=== PATIENT | female | born 1980 | race Caucasian/White ===

== ENCOUNTER 2024-04-26 17:39 | Emergency (ER) | payer MEDICAID, SELFPAY ==
[2024-04-26 17:52] VITALS: BP 129/94; PULSE 80; TEMP 36.7; O2SAT 98; BMI 32.9
--- NOTE | 2024-04-26 17:54 | XR_ITS ---
The [address] [address] Patient Name: ABILIO HOUSE MRN: [id number] date: 1980 Sex: F Assigned Patient Location: ER Current Patient Location: Accession/Order Number: [id number] Exam Date: 04/26/2024 18:00 Report Date: 04/26/2024 18:51 At the request of: AMRIE TUCKER Procedure: XR foot LT min 3V EXAM: XR foot LT min 3V HISTORY: Atraumatic heel pain COMPARISON: None. TECHNIQUE: 3 views of the left foot were obtained. FINDINGS: There is no evidence of an acute fracture or dislocation. The joint spaces are intact throughout. An osteophyte arises from the plantar aspect of the calcaneus at the origin of the plantar fascia. The soft tissues otherwise intact. XR/XR foot LT min 3V IMPRESSION: No acute fracture or dislocation. An osteophyte arises from the plantar aspect of the calcaneus. Electronically authenticated by: CATHY GARCIA Date: 04/26/2024 18:51
--- NOTE | 2024-04-26 17:56 | ED.GENADUL1 ---
HPI HPI - General Adult General Chief complaint: Extremity Injury, Lower Stated complaint: lower extremadie pain Time Seen by Provider: 04/26/24 17:46 Source: patient Mode of arrival: walk-in Limitations: no limitations History of Present Illness HPI narrative: 43-year-old female presents to ED for pain to the plantar aspect of her left heel. There is been no trauma or unusual activity or new shoes. Has been getting worse and it has been much worse in the past few days. She is never had issues with that foot previously, no fractures or injuries. It hurts more to walk on it. Related Data Home Medications ?Medication ?Instructions ?Recorded ?Confirmed buspirone 10 mg tablet mg 04/26/24 cyclobenzaprine 5 mg tablet mg 04/26/24 duloxetine 60 mg capsule,delayed mg PO 04/26/24 release lamotrigine 100 mg tablet mg 04/26/24 sumatriptan succinate 50 mg tablet mg PO 04/26/24 topiramate 100 mg tablet mg 04/26/24 Previous Rx's ?Medication ?Instructions ?Recorded acetaminophen 300 mg-codeine 30 mg 1 tab PO Q6H PRN pain 5 days #20 04/26/24 tablet tabs ibuprofen 800 mg tablet 800 mg PO Q8H PRN pain #20 tabs 04/26/24 Allergies Allergy/AdvReac Type Severity Reaction Status Date / Time sertraline (From Zoloft) AdvReac Severe suicidal Verified 04/26/24 17:56 ideation Opioid HPI Opioid Management Most Recent Opioid Data: No Data to Display Review of Systems ROS Narrative A ten point review of systems is negative except as noted above. PFSH PFSH Social History Little interest or pleasure in doing things: not at all Feeling down, depressed, or hopeless: not at all Exam Narrative Exam Narrative: Nurses note and vital signs reviewed and patient is not hypoxic. General: The patient appears well and in no apparent distress. Skin: Warm, dry, no pallor noted. There is no rash noted. Head: Normocephalic, atraumatic Eye: Normal conjunctiva, no drainage Ears, Nose, Mouth, and Throat: oral mucosa is moist. Nares patent. Cardiovascular: Regular Rate and Rhythm Respiratory: Patient is in no distress, no accessory muscle use, lungs are clear to auscultation, no wheezing, rales or rhonchi GI: Nontender Musculoskeletal: Her left foot and ankle are examined. She has no bruise or swelling or rash. The ankle is nontender. She has no tenderness distally in the plantar aspect of her left foot. She has tenderness on the proximal portion of the plantar aspect of that foot. Skin intact. Neurological: A&O, normal speech Psychiatric: Cooperative Constitutional Vital Signs, click to edit/add: Last Vital Signs Temp 98.1 F 04/26/24 17:52 Pulse 80 04/26/24 17:52 Resp 16 04/26/24 17:52 BP 129/94 H 04/26/24 17:52 Pulse Ox 98 04/26/24 17:52 O2 Del Method Room Air 04/26/24 17:52 Course Vital Signs Vital signs: Vital Signs Temperature 98.1 F 04/26/24 17:52 Pulse Rate 80 04/26/24 17:52 Respiratory Rate 16 04/26/24 17:52 Blood Pressure 129/94 H 04/26/24 17:52 Pulse Oximetry 98 04/26/24 17:52 Oxygen Delivery Method Room Air 04/26/24 17:52 Temperature 98.1 F 04/26/24 17:52 Pulse Rate 80 04/26/24 17:52 Respiratory Rate 16 04/26/24 17:52 Blood Pressure 129/94 H 04/26/24 17:52 Pulse Oximetry 98 04/26/24 17:52 Oxygen Delivery Method Room Air 04/26/24 17:52 Medical Decision Making MDM Narrative Medical decision making narrative: X-ray of your foot on my interpretation shows a heel spur. She is referred to podiatry and provided pain medication. Treatment diagnosis and follow-up were discussed with the patient. Differential Diagnosis Differential Diagnosis: Heel spur, plantar fasciitis, fracture, strain Imaging Data Left foot x-ray: My impression: Heel spur Discharge Plan Discharge Chief Complaint: Extremity Injury, Lower Clinical Impression: Heel spur Patient Disposition: Home, Self-Care Time of Disposition Decision: 18:21 Condition: Good Mode of Transportation: Private Vehicle Prescriptions / Home Meds: New acetaminophen-codeine 300-30 mg tablet 1 tab PO Q6H PRN (Reason: pain) 5 Days Qty: 20 0RF ibuprofen 800 mg tablet 800 mg PO Q8H PRN (Reason: pain) Qty: 20 0RF No Action sumatriptan succinate 50 mg tablet PO buspirone 10 mg tablet topiramate 100 mg tablet lamotrigine 100 mg tablet cyclobenzaprine 5 mg tablet duloxetine 60 mg capsule,delayed release(DR/EC) PO Print Language: Hong Konger Instructions: Heel Spur (ED) Referrals: Physician,Non-Staff, MD [Primary Care Provider] - 1 week Salomón Zavala DPM [Physician] -
[2024-04-26 18:35] VITALS: PULSE 87; O2SAT 99
== END 2024-04-26 18:35 | disposition home or self-care (01) ==
PROVIDERS: Emergency Provider Emergency Medicine
DX: M77.32 Calcaneal spur, left foot (principal)
CPT/HCPCS: 73630; 99283

== ENCOUNTER 2024-05-10 14:00 | Outpatient (OUT) | payer MEDICAID, SELFPAY ==
--- NOTE | 2024-05-10 14:04 | XR_ITS ---
The [address] [address] Patient Name: ABILIO HOUSE MRN: [id number] date: 1980 Sex: F Assigned Patient Location: [facility] Current Patient Location: Accession/Order Number: [id number] Exam Date: 05/10/2024 14:06 Report Date: 05/11/2024 07:32 At the request of: FRANCESCA BABCOCK Procedure: XR foot LT min 3V PROCEDURE: XR foot LT min 3V COMPARISON: 04/26/2024 HISTORY: Left Foot Pain FINDINGS: BONES:No fracture, acute abnormality, or significant arthropathy. SOFT TISSUES:Negative. No visible soft tissue swelling. EFFUSION:None visible. OTHER: Negative. XR/XR foot LT min 3V IMPRESSION: No acute abnormality. Electronically authenticated by: APPLE COHEN Date: 05/11/2024 07:32
== END 2024-05-10 14:01 | disposition home or self-care (01) ==
LOC: RAD 14:01
PROVIDERS: Visit Provider Physician Assistant
DX: M79.672 Pain in left foot (principal)
CPT/HCPCS: 73630